=== PATIENT | male | born 1990 | race American Indian/Alaskan Native ===

== ENCOUNTER 2017-05-04 01:54 | Emergency (ER) | payer SELFPAY ==
[2017-05-04 02:33] VITALS: RESP 20
--- NOTE | 2017-05-04 04:17 | C.PDOC ---
History Of Present Illness 27 year old male presents to ED with complaints of pain and swelling to his right hand third digit and notes a habit of biting his nails. Confirms previous infection of fingernails secondary to nail biting. Patient denies all other complaints. (-) draining or fever. Time Seen by Provider: 05/04/17 03:03 Chief Complaint (Nursing): Upper Extremity Problem/Injury History Per: Patient History/Exam Limitations: no limitations Current Symptoms Are (Timing): Still Present Quality: "Pain" Past Medical History Reviewed: Historical Data, Nursing Documentation, Vital Signs Vital Signs: Last Vital Signs Temp 98.6 F 05/04/17 04:28 Pulse 84 05/04/17 04:28 Resp 20 05/04/17 04:28 BP 141/88 05/04/17 04:28 Pulse Ox 97 05/04/17 05:24 - Medical History PMH: Diabetes Surgical History: No Surg Hx Family History: States: Unknown Family Hx - Social History Hx Alcohol Use: No Hx Substance Use: No - Immunization History Hx Tetanus Toxoid Vaccination: Yes Hx Influenza Vaccination: No Hx Pneumococcal Vaccination: No Review Of Systems Except As Marked, All Systems Reviewed And Found Negative. Constitutional: Negative for: Fever Musculoskeletal: Positive for: Hand Pain (pain and swelling to right middle finger). Negative for: Other ((-) draining to the area) Physical Exam - Physical Exam Appears: No Acute Distress Skin: Normal Color, Warm, Dry Extremity: Normal ROM, Capillary Refill (<2 seconds), No Deformity, Swelling ( moderate swelling to right hand 3rd digit. ), Other (Yellow discoloration at the base of Rt 3rd fingernail. No discharge) Neurological/Psych: Oriented x3 ED Course And Treatment O2 Sat by Pulse Oximetry: 97 (RA) Pulse Ox Interpretation: Normal Medical Decision Making Medical Decision Makin Initial plan: See procedure note for I&D 0415 Patient tolerated procedure well and is stable for discharge home. Disposition Counseled Patient/Family Regarding: Diagnosis, Need For Followup, Rx Given - Disposition Referrals: [facility] [Outside] Disposition: HOME/ ROUTINE Disposition Time: 04:15 Condition: STABLE Additional Instructions: Keep area clean Apply bacitracin oint Take PO antibiotics as prescribed Return to ER if worse Prescriptions: Amoxicillin/Clavulanate [Augmentin 875 MG-125 MG] 1 tab PO BID #14 tab Instructions: [place]onychia (ED) Forms: [facility] (Angolan) - POA Present On Arrival: Object Left In During Previous Surgery - Clinical Impression Clinical Impression: Paronychia of finger of right hand - Scribe Statement Scribe Attestation: Documented by Jace Hays acting as a scribe for Cheryl Gooden PA-C. Scribe Attestation: All medical record entries made by the Scribe were at my direction and personally dictated by me. I have reviewed the chart and agree that the record accurately reflects my personal performance of the history, physical exam, medical decision making, and the department course for this patient. I have also personally directed, reviewed, and agree with the discharge instructions and disposition. Procedures - Time-Out Type of Procedure: I&D Site of Procedure: Right hand 3rd digit Correct Patient (with visual ID + MR# on ID Band): Yes Correct Procedure: Yes Correct Site Marked: Yes X-Ray Marked: NA Medication Reconciliation / Bloodwork / Allergies Checked: Yes PA/Tech: Cheryl Gooden - Incision and Drainage Site: Right hand 3rd digit Blade Size: 15 I & D Procedure: sterile dressing applied Progress: Incision made over affected nail bed. Moderate amount of purulent discharge collected. No anaesthesia given. Bacitracin and dressing applied post procedure.
[2017-05-04 04:31] VITALS: BP 141/88; PULSE 84; TEMP 98.6
[2017-05-04 05:12] VITALS: O2SAT 97
== END 2017-05-04 04:29 | disposition home or self-care (01) ==
LOC: C.ER 01:54
DX: L03.011 Cellulitis of right finger (principal)